=== PATIENT | female | born 1960 ===

== ENCOUNTER 2019-10-09 07:09 | Day surgery (SDC) | payer OTHER ==
[~2019-10-09 07:09] MED LIST: DEPAKOTE ER500 MG PO; LAMICTAL25 M1 PO; RISPERDAL1 MG PO
[2019-10-09] MEDS ORDERED: TYLENOL325 MG PO (10:09)
== END 2019-10-09 11:53 | disposition home or self-care (01) ==
LOC: CIR.AMB 07:09
DX: N84.0 Polyp of corpus uteri (principal)

== ENCOUNTER 2021-09-01 09:20 | Outpatient (CLI) | payer OTHER ==
[~2021-09-01 09:20] MED LIST changes: +TYLENOL325 MG PO
== END 2021-09-01 09:25 | disposition home or self-care (01) ==
LOC: RX STUDY 09:20
PROVIDERS: ATTEND Otolaryngology Plastic Surgery within the Head & Neck
DX: K22.89 Other specified disease of esophagus (principal); R13.19 Other dysphagia